=== PATIENT | male | born 1975 | race Caucasian/White ===

== ENCOUNTER 2025-10-05 10:15 | Emergency (ER) | payer OTHER, SELFPAY ==
[2025-10-05 10:42] VITALS: BP 144/100
--- NOTE | 2025-10-05 13:11 | ED.GENMED ---
History of Present Illness
General
Chief Complaint: Skin Surface Trauma
Source: patient
Exam Limitations: none
Time Seen by Provider: 10/05/25 12:44
Nursing documentation reviewed up to this point in time: agreed with
History of Present Illness
History of Present Illness:
Patient was using a router and accidentally cut his right wrist. He is right-hand dominant. He is unsure of his last tetanus. He denies any other injuries. He denies any numbness tingling weakness to fingers. He denies any bony wrist or hand
pain.
Phy Exam
General Physical Exam
General Presentation: no apparent distress
General age: appears stated age
General Skin: warm and dry
General Habitus: normal
General Mental: alert
General Hydration: appears well hydrated
Neurological Exam
Neurological Exam: alert and oriented x3
Musculoskeletal Exam
Musculoskeletal Exam: other (right wrist with irregular lacerations to ulnar aspect + oozing of blood no bony wrist /hand tenderness )
Skin Exam
Skin Exam: normal color and warm/dry
Psychiatric Exam
Psychiatric Exam: normal mood/affect
Course
Orders/Labs/Results
Orders:
Orders
10/05/25 10:44
Wrist, Right 3 Views [CR Wrist - Right Min 3 Views] Urgent
Comment:
Reason For Exam: hit with a disc pad grinder
10/05/25 13:12
Tetanus/Diphth/Acelpertussis [Adacel] 0.5 ml IM .ONCE ONE
10/05/25 13:28
Vital Signs- Treatment ONCE
Frequency: Once
Vital Signs
Initial and Last Documented VS:
Initial Vital Signs
Temp Pulse Resp BP Pulse Ox
98.8 F 88 18 144/100 99
10/05/25 10:42 10/05/25 10:42 10/05/25 10:42 10/05/25 10:42 10/05/25 10:42
Last Documented Vital Signs
Temp Pulse Resp BP Pulse Ox
98.8 F 77 18 138/88 98
10/05/25 10:42 10/05/25 13:35 10/05/25 13:35 10/05/25 13:35 10/05/25 13:35
Procedures
Laceration Closure
Right Ulnar Wrist:
Status of Wound: clean
Size of Wound in cm: 3
Description of Wound Edges: flap-well vascularized
Preparation: cleaned with saline
Anesthesia: 1% Lidocaine with epi
Revision/Debridement: routine- no revision
Wound exploration: explored to base- no FB and no tendon involvement
Type of Closure: single layer closure and interrupted sutures
Skin Closure Material: 5-0 nylon
Number of sutures: 3
MDM/Problems Addressed
Differential Diagnosis Includes:
Not limited to laceration less likely bony injury
MDM/Problems Addressed:
Patient with a laceration to his right wrist from the router tool. Wound was irrigated with copious law normal saline and sutured tetanus updated. No bony tenderness x-ray negative
*Radiology
Radiology exam reviewed: radiology read reviewed
*Pulse Oximetry
SaO2: 99
Oxygen Mode of Delivery: Room air
Patient hypoxic: no
*Critical Care Note
Total Time (30-74mins, 75-104mins- exclusive of procedures): Not Applicable
ED Attending Note
-
Portions of this chart may have been created with voice recognition software.� Occasional wrong word or��sound alike� substitutions may have occurred due to the inherent limitations of voice recognition software.
Discharge Plan
Departure
Patient Disposition: Home (Routine Discharge)
Date of Disposition: 10/05/25
Time of Disposition: 13:19
Patient with high blood pressure during this ER visit?: No
Condition: Fair
Discharge Problem:
Laceration
Instructions: Laceration Repair With Glue (DC), Wound Care (DC), Laceration Repair With Stitches (DC), BLOOD PRESSURE
Referrals:
Camacho Soares DO [Family Provider, Family Practice]
Activity Restrictions/Additional Instructions:
Keep wound clean and dry for 24 hours after 24 hours wash lightly with soap and water pat dry. You may apply small amount of antibiotic ointment over the sutures however do not apply over the glue. Glue will flake off on its own within 5 to 7
days. See your family doctor in 2 days for wound check. Sutures are to be removed in 10 days. Return if any signs infection of increased pain swelling redness drainage fever chills.
Interventions
Interventions:
*General Assessment Last Done: 10/05/25 10:47
*Neglect/Abuse Screening Last Done: 10/05/25 10:47
*ED COVID-19 Vaccine History Last Done: 10/05/25 10:47
*ED Influenza Vaccine History Last Done: 10/05/25 10:47
*Risk Screen - Suicide (C-SSRS) Last Done: 10/05/25 10:47
*Nursing Disposition Last Done: 10/05/25 13:31
ED-Skin Assessment Last Done: 10/05/25 12:46
Discharge Date and Time
Discharge Date/Time: 10/05/25 13:52
Print Language: BARBADIAN
[2025-10-05] MEDS: ADACEL 0.5 ML IM (13:28)
[2025-10-05 13:35] VITALS: BP 138/88
== END 2025-10-05 13:52 | disposition home or self-care (01) ==
LOC: EMR 10:15
PROVIDERS: EMERGENCY PHYSICIAN Emergency Medicine; FAMILY PHYSICIAN Family Medicine
DX: S61.511A Laceration without foreign body of right wrist, initial encounter (principal); W29.8XXA Contact with other powered hand tools and household machinery, initial encounter; Z23 Encounter for immunization
CPT/HCPCS: 99283; 12002; 90471; 73110; 90715